=== PATIENT | male | born 2000 | race Two or more races ===

== ENCOUNTER 2022-12-21 04:05 | Emergency (ER) | payer MEDICAID, OTHER ==
[~2022-12-21] VITALS: Ht 188 cm; Wt 117.9 kg
[2022-12-21 04:06] VITALS: BP 111/53; RESP 20; O2SAT 100
[2022-12-21 04:31] VITALS: PULSE 80
[2022-12-21 04:52] LABS: Basophils # (auto) 0.1 10 ^3/uL (0-0.2); Basophils % (auto) 0.7 % (0.0-2.0); Eosinophils # (auto) 0.4 10 ^3/uL (0-0.8); Eosinophils % (auto) 2.7 % (0.0-7.0); Hematocrit 45.8 % (41.0-53.0); Hemoglobin 15.5 g/dL (13.5-17.5); Lymphocytes # (auto) 5.9 10 ^3/uL (0.4-5.4); Lymphocytes % (auto) 45.4 % (10.0-50.0); Mean Corpuscular Hgb Conc. 33.8 g/dL (32.0-36.0); Mean Corpuscular Volume 91.7 fL (80.0-100.0); Monocytes # (auto) 1.3 10 ^3/uL (0-1.3); Monocytes % (auto) 10.3 % (0.0-12.0); Neutrophils # (auto) 5.4 10 ^3/uL (1.6-8.6); Neutrophils % (auto) 40.9 % (37.0-80.0); Nucleated Red Blood Cells % 0.1 %; Red Cell Distribution Width 13.6 % (11.8-14.3); White Blood Cell 13.1 10^3/uL (4.4-10.8)
[2022-12-21 05:27] LABS: INR 1.04 (0.9-1.15); Partial Thromboplastin Time 30.2 SEC (24.5-34.5)
[2022-12-21] MEDS ORDERED: LORazepam 2MG/ML-1ML VIAL IM ONE (06:00)
[2022-12-21 06:39] LABS: Calcium 9.5 mg/dL (8.5-10.1)
[2022-12-21 06:42] LABS: Potassium 2.9 mmol/L (3.5-5.1)
[2022-12-21 06:45] LABS: Bilirubin, Total 0.7 mg/dL (0.2-1.0); Total Protein 7.6 g/dL (6.4-8.2)
[2022-12-21] MEDS ORDERED: HYDR25CA PO (06:59)
[2022-12-21] MEDS ORDERED: POTASSIUM CHL 20 Meq TABLET PO ONE (07:00)
== END 2022-12-21 07:14 | disposition home or self-care (01) ==
LOC: ER 04:05
DX: F41.0 Panic disorder [episodic paroxysmal anxiety] (principal); R07.89 Other chest pain; R51.9 Headache, unspecified; R20.2 Paresthesia of skin; M79.10 Myalgia, unspecified site; Z79.899 Other long term (current) drug therapy
CPT/HCPCS: 36415; 71045; 80053; 83880; 84484; 85025; 85610; 85730; 93005; 96372; 99285; J2060